=== PATIENT | male | born 1965 | race Caucasian/White ===

== ENCOUNTER → 2020-07-22 | Outpatient (CLI) | payer BC, OTHER ==
[~2020-07-22] MED LIST: ASPIRIN EC81 M1 PO; COREG6.25 MG PO; COZAAR 25MG TAB25 M1 PO; FLEXERIL PO; NORCO 5-325 TA1 EACH PO; ZOFRAN ODT4 MG PO
== END ==
LOC: LAB 08:14
PROVIDERS: ATTEND Family Medicine
DX: R05 Cough (principal); Z20.828 Contact with and (suspected) exposure to other viral communicable diseases